=== PATIENT | female | born 1955 | race Caucasian/White ===

== ENCOUNTER 2016-11-28 09:27 | Day surgery (SDC) | payer OTHER ==
--- NOTE | 2016-11-16 07:13 | HP ---
HISTORY AND PHYSICAL: DATE OF ADMISSION/SURGERY: 11/28/16 DATE OF OFFICE VISIT/ENCOUNTER: 11/09/16 ATTENDING SURGEON: Jennifer Clarke MD * (DICTATED BY VIRGINIA WEBSTER) PROCEDURE: Right thumb CMC arthroplasty. CHIEF COMPLAINT: Right thumb pain. HISTORY OF PRESENT ILLNESS: This is a 61-year-old female, who has been followed by Dr. Clarke for a couple of years now for right thumb CMC joint arthritis. She has received cortisone injections over time, but they are becoming less effective. Updated x-rays show advancement of the arthritis. The pain has become very bothersome to the point where the patient cannot work and has trouble driving. She has consented to proceed at this point with surgery in the form of a right thumb CMC arthroplasty. PAST MEDICAL HISTORY: 1. Possible peripheral neuropathy. 2. GERD. PAST SURGICAL HISTORY: 1. . 2. Tonsillectomy. 3. Cholecystectomy. 4. D and C. 5. [place] teeth extraction. 6. Left knee arthroscopy. CURRENT MEDICATIONS: 1. Claritin. 2. Diclofenac sodium. 3. Fluticasone propionate. 4. Lansoprazole 30 mg. 5. Mimyx. ALLERGIES: CELEBREX causes , the patient reports that she can take ibuprofen and MYCINS cause stomach cramps. FAMILY MEDICAL HISTORY: Heart disease. 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 She denies tobacco use and recreational drug use and alcohol use. REVIEW OF SYSTEMS: General: Negative for fevers, chills, or night sweats. No known anesthesia problems. HEENT: Negative for headache, lightheadedness, or syncopal episodes. Integumentary: Negative for abrasions, lesions, or open wounds. Cardiothoracic: Negative for hypertension, chest pain, palpitations, or edema. Pulmonary: Negative for shortness of breath with exertion, chronic cough, COPD. GI: Positive for GERD. Negative for nausea, vomiting, diarrhea, or constipation. : Negative for nocturia, urinary frequency, urgency, history of UTIs, or kidney problems. Musculoskeletal: Positive for current complaint. Negative for chronic or intermittent back pain or history of fractures. Neurological: Negative for paresthesias, numbness, history of seizure, stroke, or epilepsy. Endocrine: Negative for diabetes or thyroid issues. Hematologic: Negative for easy bruising, anemia, excessive bleeding, or history of DVT. Infectious Disease: Negative for history of MRSA, hepatitis C, or HIV. PHYSICAL EXAMINATION GENERAL: Well-developed, well-nourished, 61-year-old female, in no acute distress. VITAL SIGNS: Height 5 feet 4 inches, weight 196 pounds, pulse rate 80, blood pressure 128/92. HEENT: Normocephalic and atraumatic. Pupils are equal, round, and reactive to light and accommodation. Extraocular movements are intact. NECK: Supple. No palpable lymph nodes. Throat is clear. PULMONARY: Lungs are clear to auscultation bilaterally. No wheezes, rales, or rhonchi. CARDIOVASCULAR: Regular rate and rhythm. S1 and S2. No murmurs, rubs, or gallops. No edema. ABDOMEN: Positive bowel sounds, soft, nontender. NEUROLOGICAL: Alert and oriented x3. Cranial nerves II through XII are intact. Sensation is intact to light touch. MUSCULOSKELETAL: On exam of her right thumb, she has some prominence of the proximal metacarpal and marked tenderness at the CMC joint. She has a positive grind test, negative Hipolito's test. Neurovascular function is intact. She has pain with full opposition to the base of her small finger. DIAGNOSTIC STUDIES: X-rays, AP, lateral, and oblique of the right thumb show CMC joint arthritis. IMPRESSION: Right thumb carpometacarpal joint arthritis. PLAN: The patient is scheduled to undergo a right thumb CMC arthroplasty with Dr. Clarke on 11/28/16. She will return to the office 10 to 14 days postop for followup and suture removal. A prescription for [place] was e-scribed to her pharmacy for postoperative pain management. VIRGINIA WEBSTER [id number]/[facility] #: [id number] [place]
[~2016-11-28 09:27] MED LIST: Buffered Lidocaine 0.9% SYRIN* 5 ML/SYR SYRINGE INTRADERM ONE; Ibuprofen TAB* 400 MG PO ONE; Sodium Citrate/Citric Acid* 15 ML UDC PO ONE
[2016-11-28] MEDS ORDERED: Ibuprofen TAB* 400 MG ONE (09:54)
[2016-11-28] MEDS ORDERED: ceFAZolin 2 GM PREMIX (*) 2 GM/50 ML BAG IVPB ONE (09:55)
[2016-11-28] MEDS ORDERED: Sodium Citrate/Citric Acid* 15 ML UDC ONE (09:55)
[2016-11-28] MEDS ORDERED: Buffered Lidocaine 0.9% SYRIN* 5 ML/SYR SYRINGE ONE (10:30)
[2016-11-28] MEDS ORDERED: Lidocaine 0.5%* 50 ML SDV ONE (10:46)
[2016-11-28] MEDS ORDERED: Midazolam* 1 MG/ML 5 ML VIAL (5 MG) ONE (10:46)
[2016-11-28] MEDS ORDERED: fentaNYL* 50 MCG/ML 2 ML VIAL (100 MCG VIAL) ONE ×2 (10:46→11:14)
[2016-11-28] MEDS ORDERED: Propofol* 10 MG/ML 20 ML BTL IV PUSH ONE (11:04)
[2016-11-28] MEDS ORDERED: Ketorolac INJ* 30 MG/ML 1 ML VIAL IV PRN (11:30)
[2016-11-28] MEDS ORDERED: oxyCODONE/Acetamin 5/325 MG* TAB PO PRN (11:30)
[2016-11-28] MEDS ORDERED: fentaNYL* 50 MCG/ML 2 ML VIAL (100 MCG VIAL) IV PRN (11:30)
[2016-11-28 12:22] VITALS: BP 128/75
--- NOTE | 2016-11-29 02:17 | OP ---
CC: Dr. Clarke OPERATIVE REPORT: DATE OF OPERATION: 11/28/16 - [place] DATE OF : 59 SURGEON: Jennifer Clarke MD STOCK SPECULATOR: VIRGINIA Mckeon ANESTHESIOLOGIST: Salvador Flowers MD ANESTHESIA: IV regional. PRE-OP DIAGNOSIS: Right thumb CMC arthritis. POST-OP DIAGNOSIS: Right thumb CMC arthritis. OPERATIVE PROCEDURE: Right thumb CMC arthroplasty. ESTIMATED BLOOD LOSS: Zero. TOURNIQUET TIME: About 40 minutes. INDICATION FOR PROCEDURE: Kae is a 61-year-old woman who has painful arthritis at the base of her right thumb. She has failed conservative treatment and presents for arthroplasty of the right thumb carpometacarpal joint. DESCRIPTION OF PROCEDURE: The patient was brought to the operating room, was given an IV regional anesthetic with a tourniquet around her right upper arm. The skin of her right upper extremity was prepped and draped in the usual sterile fashion. The hand and forearm were exsanguinated prior to instillation of the anesthetic and S-shaped incision was made centered over the thumb CMC joint, which has dissected bluntly through the subcutaneous tissue, branches of the radial sensory nerve were located and retracted by the assembler surgical garment, Joslyn Mcdaniel, whose participation was essential for safe completion of the case. The APL and EPB tendons were then dissected out and retracted as well and then a distally based U- shaped flap was created at the thumb CMC joint. Branch of the radial artery was also retracted by the assembler surgical garment. The joint capsule was subperiosteally dissected off of the trapezium and then the trapezium was removed in its entirety in piecemeal fashion with a rongeur. The FCR tendon and the base of the wound was in very good condition. The CMC joint capsule was then secured to the FCR tendon with a 4-0 nylon suture and the remainder of the capsule was closed with 4-0 nylon suture. The wound was irrigated and the skin edges were reapproximated with 4-0 nylon suture. The wound was dressed with Xeroform, 4x4, Webril, and a thumb spica brace with the metacarpal abducted. The patient tolerated the procedure well and was brought to the recovery room in good condition. [id number]/[facility] #: [id number] [facility]
== END 2016-11-28 12:22 | disposition home or self-care (01) ==
LOC: OREAST 09:27
PROVIDERS: ATTEND Orthopaedic Surgery
DX: M18.11 Unilateral primary osteoarthritis of first carpometacarpal joint, right hand (principal); K21.9 Gastro-esophageal reflux disease without esophagitis
CPT/HCPCS: 88304; 88311; A9270-GY; J0690; J2250; J2704; J3010

== ENCOUNTER 2018-11-12 07:41 | Day surgery (SDC) | payer OTHER ==
--- NOTE | 2018-11-06 16:11 | HP ---
PREOPERATIVE HISTORY AND PHYSICAL: DATE OF ADMISSION/SURGERY: 11/12/18 [facility] DATE OF OFFICE VISIT/ENCOUNTER: 10/28/18 ATTENDING SURGEON: Jennifer Clarke MD * (DICTATED BY VIRGINIA WEBSTER) PROCEDURE: Trigger finger release, excision mass right long finger. HISTORY OF PRESENT ILLNESS: This is a 63-year-old female who complains of triggering and locking of her right middle finger. She also feels that there is a cyst along the volar aspect of her finger. The triggering and locking has been ongoing for several months and is getting worse. She often wakes up in the middle of the night or in the morning with her finger locked in flexion and it is quite painful to try to reduce it. She denies any injury to this hand. She is interested in pursuing surgical intervention for this problem. PAST MEDICAL HISTORY: 1. Osteoarthritis. 2. GERD. 3. Rheumatoid arthritis. PAST SURGICAL HISTORY: 1. D and C. 2. . 3. Tonsillectomy. 4. Cholecystectomy. 5. Right thumb CMC arthroplasty. 6. Left knee arthroscopy. 7. [place] teeth extraction. CURRENT MEDICATIONS: 1. Advil p.r.n. 2. Estradiol/norethindrone acetate daily as directed. 3. Hydroxychloroquine sulfate 200 mg twice a day. 4. Lansoprazole 30 mg daily. 5. Voltaren 1% apply 2 g daily p.r.n. ALLERGIES: CELEBREX causes jitters, MYCIN causes nausea and vomiting. FAMILY MEDICAL HISTORY: Heart disease, rheumatoid arthritis, hypertension, diabetes. SOCIAL HISTORY: The patient is retired. She denies tobacco use, recreational drug use and does not drink alcohol. REVIEW OF SYSTEMS: Negative for general, cephalic, cardiovascular, respiratory , GI, , other musculoskeletal, integumentary, endocrine, neurologic, and hematologic symptoms. Infectious Disease: Negative for MRSA, hepatitis C, HIV. PHYSICAL EXAMINATION GENERAL: A well-developed, well-nourished 63-year-old female, in no acute distress. VITAL SIGNS: Height 5 feet 5 inches, weight 199 pounds, pulse rate 100, blood pressure 120/80. HEENT: Normocephalic, atraumatic. Pupils are equal, round, and reactive to light and accommodation. Extraocular movements are intact. Throat is clear. NECK: Supple. No palpable lymph nodes. PULMONARY: Lungs are clear to auscultation bilaterally. No wheezes, rales, or rhonchi. CARDIOVASCULAR: Regular rate and rhythm. S1, S2. No murmurs, rubs, or gallops. No edema. ABDOMEN: Positive bowel sounds, soft, nontender. NEUROLOGIC: Alert and oriented x3. Cranial nerves II through XII are intact. Sensation is intact to light touch. MUSCULOSKELETAL: On exam of her right middle finger, she has exquisite tenderness to palpation at the A1 elysia. She has a bit of a flexion contracture. She has a palpable ganglion cyst on her flexor tendon sheath. She cannot make a full fist. Neurovascular function and skin are both intact. IMPRESSION: Right middle finger trigger finger with ganglion cyst. PLAN: The patient is scheduled to undergo a trigger finger release, excision mass from right long finger with Dr. Clarke on 11/12/18. She will return to the office 10 days postop for followup and suture removal. A prescription for tramadol was e- scribed to the patient's pharmacy for postoperative pain management. VIRGINIA WEBSTER [id number]/[facility] #: [id number] [place]
[~2018-11-12 07:41] MED LIST changes: +Acetaminophen TAB* 325 MG PO PRN; -Buffered Lidocaine 0.9% SYRIN* 5 ML/SYR SYRINGE INTRADERM ONE; +Buffered Lidocaine 1% SYRIN* 1 ML/SYRINGE INTRADERM ONE; +Dexamethasone IV* 4 MG/ML 1 ML (4 MG) IV SLOW PU ONE; +DiMENhydriNATE IV* 50 MG/ML VIAL IV PUSH PRN; +Famotidine IV* 10 MG/ML 2 ML (20 mg) IV ONE; +HYDROcodone/ACETAMIN 5-325 MG* 1 TAB PO PRN; -Ibuprofen TAB* 400 MG PO ONE; +Ketorolac INJ* 30 MG/ML 1 ML VIAL IV PRN; +Lactated Ringers 1000 ML Bag* 1,000 ML IV SCH; +Naloxone* 0.4 MG/ML 1 ML VIAL IV PRN; -Sodium Citrate/Citric Acid* 15 ML UDC PO ONE; +fentaNYL* 50 MCG/ML 2 ML VIAL (100 MCG VIAL) IV PRN; +oxyCODONE/Acetamin 5/325 MG* TAB PO PRN
[2018-11-12] MEDS ORDERED: Buffered Lidocaine 1% SYRIN* 1 ML/SYRINGE INTRADERM ONE (08:08)
[2018-11-12] MEDS ORDERED: Propofol* 10 MG/ML 20 ML BTL ONE (09:04)
[2018-11-12] MEDS ORDERED: Midazolam* 1 MG/ML 2 ML VIAL (2 MG) ONE (09:04)
[2018-11-12] MEDS ORDERED: fentaNYL* 50 MCG/ML 2 ML VIAL (100 MCG VIAL) ONE (09:04)
[2018-11-12] MEDS ORDERED: Lidocaine 2% PF * 5 ML VIAL ONE (09:04)
[2018-11-12] MEDS ORDERED: Bupivacaine 0.5% SDV PF* 30ML VIAL ONE (09:18)
[2018-11-12] MEDS ORDERED: Lidocaine 1% INJ* 10 MG/ML 30 ML SDV ONE (09:18)
[2018-11-12] MEDS ORDERED: Ondansetron INJ* 2 MG/ML VIAL ONE (09:48)
[2018-11-12 10:33] VITALS: BP 129/87
--- NOTE | 2018-11-12 17:04 | OP ---
DATE OF OPERATION: 11/12/18 [facility] DATE OF : 59 SURGEON: Jennifer Clarke MD WORK FORCE ADVISOR: VIRGINIA Mckeon ANESTHESIA: Local MAC. PRE-OP DIAGNOSES: 1. Right long finger trigger finger. 2. Ganglion cyst. POST-OP DIAGNOSES: 1. Right long finger trigger finger. 2. Ganglion cyst. OPERATIVE PROCEDURE: Right long finger trigger release and ganglion cyst excision. ESTIMATED BLOOD LOSS: Zero. TOURNIQUET TIME: About 10 minutes. INDICATIONS FOR PROCEDURE: Kae is a 63-year-old female, who has a painful mass at the MP flexion crease of her right middle finger as well as triggering of the finger. She presents for trigger release and ganglion cyst excision. DESCRIPTION OF PROCEDURE: The patient was brought to the operating room, was given a sedation anesthetic and a local infiltration of 10 cc of 1% plain lidocaine as a digital block to the right long finger. The skin of her right hand and forearm was prepped and draped in the usual sterile fashion. The hand and forearm were exsanguinated and the tourniquet elevated to 250 mmHg. A chevron incision was made centered at the MP flexion crease and we dissected through the subcutaneous tissue down to the flexor tendon sheath. There was a ganglion cyst emanating from the sheath and it was removed with a small portion of the flexor tendon sheath. The A1 elysia was then completely released. The tendons were in good condition without any synovitis. The wound was copiously irrigated with saline. The skin edges were reapproximated with 4-0 nylon suture and then the wound was dressed with Xeroform, 4x4, Webril, and an Sai wrap. The patient tolerated the procedure well and was brought to the recovery room in good condition. [id number]/[facility] #: [id number] [facility]
== END 2018-11-12 10:43 | disposition home or self-care (01) ==
LOC: OREAST 07:41
PROVIDERS: ATTEND Orthopaedic Surgery
DX: M65.331 Trigger finger, right middle finger (principal); M67.441 Ganglion, right hand; M06.9 Rheumatoid arthritis, unspecified; M19.90 Unspecified osteoarthritis, unspecified site
CPT/HCPCS: 88304; J2250; J2405; J2704; J3010; J3490